=== PATIENT | male | born 1970 | race Caucasian/White ===

== ENCOUNTER 2024-06-02 09:18 | Emergency (ER) | payer BC, SELFPAY ==
[2024-06-02 09:27] VITALS: BP 137/95
--- NOTE | 2024-06-02 09:44 | ED.GENMED ---
History of Present Illness
General
Chief Complaint: Foreign Body Removal
Source: patient
Time Seen by Provider: 06/02/24 09:39
History of Present Illness
History of Present Illness:
54-year-old male with past medical history of hypertension and hyperlipidemia presenting to the emergency department for evaluation after he got a earbud from a headphone stuck in his right ear yesterday, unable to get out. No pain. Attempted to
try and get out on his own but without any success.
Past History
Past History
ED Past Medical History: HTN and Hypercholesterolemia
ED Past Surgical History: Orthopedic
Social History
Tobacco: Non-smoker
Alcohol: None
Drug: None
Living: with family
Review of Systems
Review of Systems
All Other Systems: ROS reviewed and negative except as documented in HPI and ROS
Phy Exam
Physical Exam
Physical Exam:
GENERAL: Alert , in no apparent distress
EYE: conjunctiva clear
Head: Normocephalic atraumatic
NECK: Supple,
ENT: mmm. There is a winter-black foreign body within the right auditory canal, unable to visualize the TM due to the size of the foreign body. No bleeding noted
LUNGS: no acute respiratory distress
NEUROLOGICAL: Alert and oriented
SKIN: Warm and dry, skin intact.
MUSCULOSKELETAL: well perfused.
PSYCH: Normal and appropriate interaction.
Scores
Heart Failure Risk
Heart Failure Risk Score: Not Applicable
Heart Score for Chest Pain Patients
STEMI patient?: Not applicable
Withdrawal Assessment of Alcohol
Withdrawal Assessment Completed?: Not applicable
Course
Vital Signs
Initial and Last Documented VS:
Initial Vital Signs
Temp Pulse Resp BP Pulse Ox
97.9 F 77 16 137/95 98
06/02/24 09:27 06/02/24 09:27 06/02/24 09:27 06/02/24 09:27 06/02/24 09:27
Last Documented Vital Signs
Temp Pulse Resp BP Pulse Ox
97.9 F 77 16 137/95 98
06/02/24 09:27 06/02/24 09:27 06/02/24 09:27 06/02/24 09:27 06/02/24 09:27
Procedures
Foreign Body Removal-Ear
Right External canal:
Tenderness: none
Any local drainage: none
Removal of foreign body using: alligator forceps
Exam of canal after removal: no inflammation
MDM/Problems Addressed
MDM/Problems Addressed:
54-year-old male presents emergency department for evaluation of foreign body to the right auditory canal. Foreign body was removed without any difficulty using alligator forceps. Tympanic membrane and canal are within normal limits following
removal of the foreign body. Patient is otherwise stable for discharge home.
*Pulse Oximetry
Patient hypoxic: no
*Critical Care Note
Total Time (30-74mins, 75-104mins- exclusive of procedures): Not Applicable
ED Attending Note
-
Portions of this chart may have been created with voice recognition software.� Occasional wrong word or��sound alike� substitutions may have occurred due to the inherent limitations of voice recognition software.
Discharge Plan
Departure
Patient Disposition: Home (Routine Discharge)
Date of Disposition: 06/02/24
Time of Disposition: :44
Patient with high blood pressure during this ER visit?: Yes
Discharge Problem:
Acute foreign body of right ear canal
Interventions
Interventions:
*Risk Screen - Suicide Last Done: 06/02/24 09:27
*Neglect/Abuse Screening Last Done: 06/02/24 09:27
Discharge Date and Time
Print Language: [id number]
== END 2024-06-02 10:06 | disposition home or self-care (01) ==
LOC: EMR 09:18
PROVIDERS: EMERGENCY PHYSICIAN Emergency Medicine
DX: T16.1XXA Foreign body in right ear, initial encounter (principal); W44.G1XA Audio device entering into or through a natural orifice, initial encounter; I10 Essential (primary) hypertension; E78.00 Pure hypercholesterolemia, unspecified
CPT/HCPCS: 99282; 69200